=== PATIENT | female | born 1940 | race Caucasian/White ===

== ENCOUNTER 2018-02-17 13:05 | Inpatient (IN) | payer MEDICARE ==
[2018-02-17 13:36] LABS: #Eosinphils 0.2 thou/uL (0.0-0.7); #Lymphocytes 1.7 thou/uL (1.20-3.40); #Neutrophils 8.9 thou/uL (1.40-6.50); %Basophils 0.4 % (0.0-1.0); %Lymphocytes 14.4 % (21.0-51.0); %Neutrophils 75.2 % (42.0-75.0); Hemoglobin 6.6 g/dL (12.0-16.0); Mean Corpuscular HGB CONC 31.7 g/dL (32.0-36.0); Mean Corpuscular Hemoglobin 26.4 pg (27.0-31.0); Mean Corpuscular Volume 83.3 fL (78.0-98.0); Mean Platelet Volume 9.3 fL (7.4-10.4); Platelet Count 385 thou/uL (130-400); RBC Distribution Width 17.4 % (11.5-14.5); Red Blood Cell (RBC) Count 2.51 mill/uL (4.20-5.40); White Blood Cell (WBC) Count 11.9 thou/uL (4.8-10.8)
[2018-02-17 14:50] LABS: ALT (SGPT) 13 U/L (8-55); AST (SGOT) 20 U/L (5-34); Albumin 4.4 g/dL (3.4-4.8); Alkaline Phosphatase 31 U/L (40-150); Anion Gap 15 mmol/L (10-20); BUN (Urea Nitrogen) 32 mg/dL (9.8-20.1); Bilirubin, Total 0.8 mg/dL (0.2-1.2); CK (CPK) 141 U/L (29-168); Calc. Creatinine Clearance 0 mL/min (70-130); Calcium 9.5 mg/dL (7.8-10.44); Carbon Dioxide 26 mmol/L (23-31); Chloride 101 mmol/L (98-107); Estimated GFR-MDRD 45; Globulin 2.4 g/dL (2.4-3.5); Glucose 100 mg/dL (83-110); Potassium 4.6 mmol/L (3.5-5.1); Protein, Total 6.8 g/dL (6.0-8.3); Sodium 137 mmol/L (136-145)
[2018-02-17 14:52] LABS: CKMB 2.5 ng/mL (0-6.6); Troponin I Less than 0.010 ng/mL (< 0.028)
[2018-02-17 15:30] LABS: Bilirubin Negative (Negative); Blood, Urine Negative (Negative); Clarity CLEAR (Clear); Glucose, Urine (Dipstick) Negative (Negative); Leukocyte Small (Negative); Nitrite Negative (Negative); Protein, Urine (Dipstick) Negative (Neg-Trace); Specific Gravity, Urine 1.006 (1.002-1.036); Urobilinogen 0.2 mg/dL (0.2-1.0); pH, Urine 5.5 (5.0-9.0)
[2018-02-17 15:32] LABS: Bacteria/HPF None Seen HPF (None Seen); Hyaline Casts/LPF 0-3 HYALINE CAST LPF (0-3 Hyaline); Pathc Cast-AUWi Flag 0.14 (0-2.49); RBC/HPF 0-3 HPF (0-3)
[2018-02-17] MEDS ORDERED: Pantoprazole 80 MG, Admixture Fee 1 EACH in Sodium Chloride 0.9% 100 ML IVP SCH (15:45)
[2018-02-17] MEDS ORDERED: Pantoprazole 40 MG VIAL ONE (16:10)
--- NOTE | 2018-02-17 17:16 | HP ---
PRIMARY CARE PROVIDER: Dr. Diogenes Jose. [facility]. HISTORY OF PRESENT ILLNESS: The patient presents with progressive dizziness, lightheadedness for 2 w eeks. She has noted black tarry stools for 2 weeks. She was taking some Pepto-Bismol during this ti me; however, she stopped. Stools remain black and they have been positive for occult blood in the em ergency room. She has had no fainting. She has had some minimal nausea. Has not used excessive NSA IDs. She had a prior similar episode in 2012 where she was found to have hemoglobin less than 5. Wesley d a full workup including the camera study which was all negative. PAST MEDICAL HISTORY: Anemia in 2012, workup negative; hypertension; elevated cholesterol; hypothyro idism. She is on Xanax 0.25 one half in the morning and night. CURRENT MEDICATIONS: She takes metoprolol 25 mg once a day, levothyroxine 125 mcg a day, valsartan/h ydrochlorothiazide 80/12.5 once a day, cyclobenzaprine 10 mg q.8 hours p.r.n., Crestor 20 mg a day. ALLERGIES: CODEINE which causes nausea. PAST SURGICAL HISTORY: She had bone spur taken off of her right shoulder. FAMILY HISTORY: Father of coronary artery disease and had hypertension. He was 46 at that time . Mother of lung cancer. She was a heavy smoker. She has a sibling that is with mult iple myeloma. She is , nonsmoker. Drinks social alcohol 4-6 drinks a week. REVIEW OF SYSTEMS: GENERAL: No headache, fainting, fever or chills. EYES: No double vision, blurr ed vision, flashing lights. EAR, NOSE, AND THROAT: No ear pain or drainage. No nasal bleeding. No trouble swallowing. CARDIAC: No chest pain, orthopnea or paroxysmal nocturnal dyspnea. RESPIRATIO NS: She has occasional cough. She sometimes feels like fluids stick in her anterior chest. No hist ory of asthma, wheezing. GASTROINTESTINAL: Little nausea with present illness. The aforementioned melena, no abdominal pain, no vomiting. GENITOURINARY: No hematuria or dysuria. MUSCULOSKELETAL: She has had a little swell ing over the past couple of weeks. No pain in her muscles or joints. NEUROLOGIC: No strokes, seizu res or focal weakness. PSYCHIATRIC: She takes low dose Xanax for anxiety. SKIN: No bruising, blee ding or rash. HEME/LYMPH: No tender or swollen lymph nodes in axilla, inguinal, or cervical area. PHYSICAL EXAMINATION: GENERAL: She is an alert, pleasant, cooperative lady in no distress at the present time. VITAL SIGNS: Blood pressure 154/49, pulse 81, respirations 14, temperature 98.0. HEENT: Examination of her head, eyes, ears, nose, and throat reveal pupils equal, round, and reactiv e to light. Extraocular movements are intact. Sclerae are white. Tympanic membranes clear. Nose i s clear. Oral mucous membranes are wet. Dental hygiene is good. NECK: Jugular venous distention. No adenopathy or thyromegaly. CHEST: Clear to auscultation and percussion. HEART: Regular rate and rhythm. First and second heart sounds are clear. There are no murmurs or g allops. No palpable lift. ABDOMEN: Soft, bowel sounds are normal. There is no hepatosplenomegaly, no mass, no rebound, no bru its. EXTREMITIES: Reveals trace edema with no cyanosis or clubbing. PULSES: Carotid, radial, femoral, and dorsalis pedis pulses were brisk, symmetric. There was no bru it over her neck. SKIN: Warm and dry without bruises or rash. HEME/LYMPH: Reveal no tender or swollen lymph nodes in axilla, inguinal or cervical area. NEUROLOGICAL: Cranial nerves II-XII are intact. Deep tendon reflexes symmetric. Moves all extremit ies. PERTINENT LABORATORY DATA: Hemoglobin 6.6 with minimally microcytic indices, platelet count 395, whi te count 11.9, creatinine 1.17, BUN 32, sodium 137, potassium 4.6, CO2 26. Liver function tests norm al. ADMITTING DIAGNOSES: 1. Symptomatic anemia. 2. Dizziness. 3. Gastrointestinal bleeding with positive heme occult. 4. Hypertension. 5. Dyslipidemia. 6. Hypothyroidism, on therapy. PLAN: 1. Transfuse with 2 units of packed red blood cells. 2. H&H q.6 hours for 24 hours, transfuse if her hemoglobin less than 7 with 1 unit of packed cells. 3. GI consult. 4. Hold home medicines. 5. IV fluids. 6. Clear liquids. 7. SCDs for deep vein thrombosis prophylaxis. No Lovenox because of her active gastrointestinal ble gualberto.
[2018-02-17] MEDS ORDERED: Zolpidem Tartrate 5 MG TAB PO PRN (17:17)
[2018-02-17] MEDS ORDERED: Ondansetron HCl/PF 4 MG/2 ML Vial IVP PRN (17:17)
[2018-02-17] MEDS ORDERED: Acetaminophen 325 MG TAB PO PRN (17:17)
[2018-02-17 18:10] LABS: #Eosinphils 0.3 thou/uL (0.0-0.7); #Lymphocytes 1.4 thou/uL (1.20-3.40); #Monocytes 0.7 thou/uL (0.11-0.59); #Neutrophils 6.1 thou/uL (1.40-6.50); %Basophils 0.6 % (0.0-1.0); %Eosinophils 3.7 % (0.0-10.0); %Lymphocytes 16.7 % (21.0-51.0); %Monocytes 8.4 % (0.0-10.0); %Neutrophils 70.7 % (42.0-75.0); Hemoglobin 6.1 g/dL (12.0-16.0); Mean Corpuscular HGB CONC 32.5 g/dL (32.0-36.0); Mean Corpuscular Volume 83.3 fL (78.0-98.0); Platelet Count 324 thou/uL (130-400); RBC Distribution Width 17.5 % (11.5-14.5); Red Blood Cell (RBC) Count 2.26 mill/uL (4.20-5.40); White Blood Cell (WBC) Count 8.6 thou/uL (4.8-10.8)
[2018-02-17 18:12] VITALS: BMI 29.5
[2018-02-17 19:40] LABS: Iron 29 ug/dL (50-170); Iron Binding Capacity, Total 526 mcg/dL (265-497)
[2018-02-17] MEDS: Sodium Chloride 0.9% 1,000 ML IV SCH (20:04)
[2018-02-17] MEDS: Pantoprazole 40 MG VIAL IVP SCH (20:04)
[2018-02-18] MEDS: Refresh (Polyvinyl Alcohol 1.4%/Povidone 0.6%) Opth Drops EA EYE SCH ×3 (00:08→19:55)
[2018-02-18] MEDS: Sodium Chloride 0.9% 1,000 ML IV SCH ×4 (04:03→19:55)
[2018-02-18 04:17] LABS: #Eosinphils 0.4 thou/uL (0.0-0.7); #Lymphocytes 1.1 thou/uL (1.20-3.40); #Monocytes 0.7 thou/uL (0.11-0.59); #Neutrophils 7.7 thou/uL (1.40-6.50); %Basophils 0.4 % (0.0-1.0); %Eosinophils 3.9 % (0.0-10.0); %Lymphocytes 10.7 % (21.0-51.0); %Monocytes 6.9 % (0.0-10.0); %Neutrophils 78.2 % (42.0-75.0); Hemoglobin 7.8 g/dL (12.0-16.0); Mean Corpuscular HGB CONC 33.3 g/dL (32.0-36.0); Mean Corpuscular Hemoglobin 27.8 pg (27.0-31.0); Mean Corpuscular Volume 83.5 fL (78.0-98.0); Mean Platelet Volume 9.5 fL (7.4-10.4); Platelet Count 290 thou/uL (130-400); RBC Distribution Width 16.5 % (11.5-14.5); Red Blood Cell (RBC) Count 2.81 mill/uL (4.20-5.40); White Blood Cell (WBC) Count 9.9 thou/uL (4.8-10.8)
[2018-02-18 04:42] LABS: Anion Gap 11 mmol/L (10-20); BUN (Urea Nitrogen) 24 mg/dL (9.8-20.1); Calc. Creatinine Clearance 64 mL/min (70-130); Calcium 8.8 mg/dL (7.8-10.44); Carbon Dioxide 24 mmol/L (23-31); Chloride 106 mmol/L (98-107); Estimated GFR-MDRD 52; Glucose 82 mg/dL (83-110); Potassium 3.4 mmol/L (3.5-5.1); Sodium 138 mmol/L (136-145)
[2018-02-18] MEDS: Pantoprazole 40 MG VIAL IVP SCH ×2 (07:48→19:55)
--- NOTE | 2018-02-18 08:07 | PDOC.PN ---
- Subjective Encounter Start Date: 02/18/18 Encounter Start Time: 08:04 Subjective: no melena, abd pain - Objective Resuscitation Status: Resuscitation Status FULL:Full Resuscitation MAR Reviewed: Yes Vital Signs & Weight: Vital Signs (12 hours) Temp Pulse Pulse Resp BP BP Pulse Ox 02/18/18 07:29 98.6 F 78 16 134/65 94 L 02/18/18 02:10 98.0 F 82 16 152/63 H 95 02/17/18 23:30 98.0 F 77 16 151/66 H 96 02/17/18 23:10 98.3 F 77 16 150/61 H 95 02/17/18 21:02 98.4 F 85 16 143/56 H 96 Weight Weight 188 lb 3 oz I&O: 02/17/18 02/18/18 02/19/18 06:59 06:59 06:59 Intake Total 1700 Balance 1700 Result Diagrams: 02/18/18 03:30 02/18/18 03:30 Phys Exam - Physical Examination Neck: no JVD Respiratory: clear to auscultation bilateral Cardiovascular: RRR, no significant murmur Gastrointestinal: soft, positive bowel sounds Musculoskeletal: no edema Dx/Plan (1) GI bleeding Code(s): K92.2 - GASTROINTESTINAL HEMORRHAGE, UNSPECIFIED Status: Acute Qualifiers: GI bleed type/associated pathology: unspecified gastrointestinal hemorrhage type Qualified Code(s): K92.2 - Gastrointestinal hemorrhage, unspecified (2) BERNADINE (iron deficiency anemia) Code(s): D50.9 - IRON DEFICIENCY ANEMIA, UNSPECIFIED Status: Acute Qualifiers: Iron deficiency anemia type: chronic blood loss Qualified Code(s): D50.0 - Iron deficiency anemia secondary to blood loss (chronic) (3) HTN (hypertension) Code(s): I10 - ESSENTIAL (PRIMARY) HYPERTENSION Status: Acute Qualifiers: Hypertension type: essential hypertension Qualified Code(s): I10 - Essential (primary) hypertension (4) Dizziness Code(s): R42 - DIZZINESS AND GIDDINESS Status: Resolved - Plan serial H&H- transfuse for Hg < 7 -: cont iv PPI -: hold asa, etc -: await GI consult -: load with iv iron * .
[2018-02-18] MEDS ORDERED: Sodium Ferric Gluconate 250 MG, Admixture Fee 1 EACH in Sodium Chloride 0.9% 250 ML 250 ML IVPB SCH (08:15)
[2018-02-18] MEDS: ALPRAZolam 0.25 MG TAB PO SCH ×2 (08:47→19:55)
[2018-02-18] MEDS: Levothyroxine Sodium 125 MCG TAB PO SCH (08:47)
[2018-02-18] MEDS ORDERED: ALPRAZolam 0.25 MG TAB PO SCH (09:00)
[2018-02-18 09:02] LABS: #Eosinphils 0.3 thou/uL (0.0-0.7); #Lymphocytes 0.9 thou/uL (1.20-3.40); #Monocytes 0.8 thou/uL (0.11-0.59); #Neutrophils 9.7 thou/uL (1.40-6.50); %Basophils 0.4 % (0.0-1.0); %Eosinophils 2.5 % (0.0-10.0); %Monocytes 6.7 % (0.0-10.0); %Neutrophils 82.5 % (42.0-75.0); Hemoglobin 7.9 g/dL (12.0-16.0); Mean Corpuscular HGB CONC 33.2 g/dL (32.0-36.0); Mean Corpuscular Hemoglobin 27.5 pg (27.0-31.0); Mean Corpuscular Volume 82.8 fL (78.0-98.0); Mean Platelet Volume 8.8 fL (7.4-10.4); Platelet Count 262 thou/uL (130-400); RBC Distribution Width 16.7 % (11.5-14.5); Red Blood Cell (RBC) Count 2.89 mill/uL (4.20-5.40); White Blood Cell (WBC) Count 11.8 thou/uL (4.8-10.8)
[2018-02-18 12:22] LABS: #Eosinphils 0.3 thou/uL (0.0-0.7); #Monocytes 1.1 thou/uL (0.11-0.59); #Neutrophils 11.2 thou/uL (1.40-6.50); %Basophils 0.1 % (0.0-1.0); %Eosinophils 2.2 % (0.0-10.0); %Lymphocytes 7.6 % (21.0-51.0); %Monocytes 8.2 % (0.0-10.0); %Neutrophils 81.9 % (42.0-75.0); Mean Corpuscular HGB CONC 32.9 g/dL (32.0-36.0); Mean Corpuscular Hemoglobin 27.3 pg (27.0-31.0); Mean Corpuscular Volume 82.9 fL (78.0-98.0); Mean Platelet Volume 8.7 fL (7.4-10.4); Platelet Count 265 thou/uL (130-400); RBC Distribution Width 16.5 % (11.5-14.5); Red Blood Cell (RBC) Count 2.94 mill/uL (4.20-5.40); White Blood Cell (WBC) Count 13.7 thou/uL (4.8-10.8)
--- NOTE | 2018-02-18 14:12 | PQF ---
DATE: 02-18-18 ATTN: DR. ILYA HUGHES Please exercise your independent, professional judgment in responding to the clarification form. Clinical indicators are provided on the bottom of this form for your review Please check appropriate box(s): [ x ] Acute Renal Failure (ARF) / Acute Kidney Injury (ARNAV) [ ] Insignificant Lab Values [ ] Other diagnosis [ ] Unable to determine In addition, please specify: Present on Admission (POA): [ x ]x Yes [ ] No [ ] Unable to determine National Kidney Foundation Guidelines for CKD Staging Stage I Kidney damage with normal or increased GFR GFR > 90 Stage II Kidney damage with mildly decreased GFR GFR 60-89 Stage III Kidney damage with moderately decreased GFR GFR 30-59 Stage IV Kidney damage with severely decreased GFR GFR 16-29 Stage V Kidney failure GFR<15 ESRD End Stage Renal Disease On dialysis Acute Renal Failure/Acute Kidney Failure defined as: Increases in SCr by (>) 0.3 mg/dl within 48 hours OR- Increases in SCr by (>) 1.5 times baseline, known or presumed to have occurred within the prior 7 days OR- Urine volume < 0.5 ml/kg/hour for 6 hours (KDIGO supplement 2012 for RIFLE/DARLING criteria) For continuity of documentation, please document condition throughout progress notes and discharge summary. Thank You. CLINICAL INDICATORS - SIGNS / SYMPTOMS / LABS GFR: 02-17-18: 45 02-18-18 52 CREATININE: 02-17-18: 1.17 02-18-18: 1.03 BUN: 02-17-18: 32 02-18-18: 24 ER DX: SYMPTOMATIC ANEMIA, SUSPECTED GI BLEEDING RISK FACTORS: ER: HX OF HTN, HYPOTHYROIDISM, HYPERLIPIDEMIA ER: HOME MED OF METOPROLOL, VALSARTAN- HYDROCHLOROTHIAZIDE, CYCLOBENZAPRINE, CRESTOR, ASA, ALPRAZOLAM TREATMENTS: ER: IVF NS MAR: IVF NS (This form is maintained as a part of the permanent medical record) 2014 [employer]. All Rights Reserved [email or web address] [email or web address] Office: [phone] [facility]
[2018-02-18] MEDS ORDERED: GoLYTELY 4,000 ml Bottle PO SCH (16:00)
[2018-02-18] MEDS: Rosuvastatin 20 MG TAB PO SCH (19:55)
--- NOTE | 2018-02-19 01:14 | CON ---
DATE OF CONSULTATION: 02/18/2018 REASON FOR CONSULTATION: Iron deficiency anemia. CONSULTING PHYSICIAN: Leroy Ruano M.D. HISTORY OF PRESENT ILLNESS: The patient is a 77-year-old female with past medical history of hyperli pidemia, hypertension, and anemia presenting with complaints of generalized dizziness, weakness, and presyncopal events along with darker colored stools concerning for GI bleeding. She states that she was in her usual state of health until approximately 2 weeks ago when she started experiencing increa sed episodes of dizziness, generalized weakness, presyncopal events that were not associated with los s of consciousness as well as intermittent appearance of black semi-solid stools that were difficult to clean; however, she also endorses the use of Pepto-Bismol shortly after the appearance of these da rker colored stools and she discontinued this medication approximately 3 days ago with continued of t hese darker/black colored stools into this admission. This was also associated with increased nausea with no actual emesis. She further denies any hematemesis, hematochezia, weight loss, dysphagia, od ynophagia or abdominal pain. Of note, she had a very similar episode of this in 2011 with almost the exact same presenting symptom s for which she underwent EGD, colonoscopy, and capsule endoscopy with no discernible origin of her G I bleeding noted at that time. After this evaluation, she was placed on iron supplementation and had no further episodes until now. REVIEW OF SYSTEMS: A 10-category review of systems was obtained with all responses negative except f or the pertinent positives as listed in the HPI. PAST SURGICAL HISTORY: Bone spur removed from the right shoulder. FAMILY HISTORY: Denies any GI malignancies. SOCIAL HISTORY: Denies any tobacco or illicit drug use. Drinks approximately 4-6 glasses of wine pe r week. OUTPATIENT MEDICATIONS: Reviewed. ALLERGIES: CODEINE. PHYSICAL EXAMINATION: VITAL SIGNS: Temperature 98.5, pulse 84, blood pressure 165/64, respiratory rate 16, satting 96% on room air. GENERAL: Patient was sitting in chair at bedside in no acute distress, alert and oriented x4. NECK: Supple. No JVD noted. No supraclavicular lymphadenopathy. CARDIOVASCULAR: Regular rate and rhythm but with a 4/6 systolic ejection murmur. No gallops or rubs . RESPIRATORY: Clear to auscultation bilaterally with no discernible wheezes or rales. ABDOMEN: Normoactive bowel sounds, soft, nontender, nondistended. EXTREMITIES: Trace bilateral lower extremity edema extending to the mid sauceda, but more predominant o n the right lower extremity. MUSCULOSKELETAL: No cyanosis or clubbing noted. LABORATORY DATA: CBC with a white blood cell count of 13.7, hemoglobin 8, hematocrit 24.4, platelets 265. Chemistry with a sodium of 138, potassium 3.4, chloride 106, CO2 of 24, BUN 24, creatinine 1.0 3, glucose 82, AST 20, ALT 13, alkaline phosphatase 31, total bilirubin 0.8, iron 29, TIBC 526. IMAGING DATA: EGD performed on 08/15/2011 showed slight erosive esophagitis as well as a red spot at the proximal greater curvature of the stomach that was intervened upon with bipolar cautery. A colo noscopy was performed on 06/15/2011 with diverticulosis, but was otherwise normal other than the find ing. Capsule endoscopy performed on 06/30/2011 also showed some small red spots scattered throughout the small intestine, but no evidence of active/recent bleeding. ASSESSMENT AND PLAN: The patient is a 77-year-old female with past medical history of hyperlipidemia , hypertension, and anemia presenting with increased dizziness, weakness, and melenic type stools con cerning for GI bleeding. GI bleeding: The patient is presenting with a recent history of increased dizziness, weakness, and p resyncopal events associated with the appearance of black semi-solid stools approximately 2 weeks ago . She did initially take Pepto-Bismol, which could potentially create a darker colored stool further confounding the issue, but the appearance of these black stools were present prior to administration and present after she discontinued the medication. Currently, presenting with a low iron and an jonn vated TIBC consistent with iron deficiency anemia as well as an elevated BUN to creatinine ratio, elvira is further concerning for an upper gastrointestinal bleed; however, given her prior workup for kaitlynn y similar symptoms in the past, there was no discernible origin seen on either upper or lower endosco py. At this point full evaluation GI evaluation will be indicated for possible GI bleeding. RECOMMENDATIONS: 1. We would continue to trend H&H and transfuse as necessary to maintain an H&H of 7/21. 2. Continue to monitor clinically for signs of active GI bleeding. 3. We will place patient on a clear liquid diet with plans to make her n.p.o. at midnight in prepara tion for both EGD and colonoscopy tomorrow morning. 4. We would continue patient on PPI b.i.d. given the possibility of upper gastrointestinal bleeding. 5. Further recommendations to follow endoscopic evaluation. We will continue to follow. Please call with any questions.
[2018-02-19] MEDS: Pantoprazole 40 MG VIAL IVP SCH ×2 (07:45→20:21)
[2018-02-19] MEDS: Sodium Chloride 0.9% 1,000 ML IV SCH ×2 (09:29→17:14)
[2018-02-19] MEDS: Levothyroxine Sodium 125 MCG TAB PO SCH (09:49)
[2018-02-19] MEDS: Refresh (Polyvinyl Alcohol 1.4%/Povidone 0.6%) Opth Drops EA EYE SCH ×2 (09:49→20:21)
[2018-02-19] MEDS: ALPRAZolam 0.25 MG TAB PO SCH ×2 (09:50→20:21)
[2018-02-19 12:29] LABS: #Eosinphils 0.4 thou/uL (0.0-0.7); #Lymphocytes 1.1 thou/uL (1.20-3.40); #Monocytes 0.5 thou/uL (0.11-0.59); #Neutrophils 5.6 thou/uL (1.40-6.50); %Basophils 0.2 % (0.0-1.0); %Eosinophils 5.6 % (0.0-10.0); %Lymphocytes 14.8 % (21.0-51.0); %Monocytes 6.3 % (0.0-10.0); %Neutrophils 73.2 % (42.0-75.0); Hemoglobin 7.4 g/dL (12.0-16.0); Mean Corpuscular HGB CONC 32.7 g/dL (32.0-36.0); Mean Corpuscular Hemoglobin 27.6 pg (27.0-31.0); Mean Corpuscular Volume 84.6 fL (78.0-98.0); Mean Platelet Volume 8.4 fL (7.4-10.4); Platelet Count 288 thou/uL (130-400); RBC Distribution Width 16.9 % (11.5-14.5); Red Blood Cell (RBC) Count 2.69 mill/uL (4.20-5.40); White Blood Cell (WBC) Count 7.7 thou/uL (4.8-10.8)
[2018-02-19] MEDS ORDERED: Fentanyl 100 MCG/2 ML VIAL ONE (13:35)
[2018-02-19] MEDS ORDERED: Promethazine HCl 25 MG/ML VIAL SLOW IVP PRN (14:37)
[2018-02-19] MEDS ORDERED: Meperidine HCl/PF 25 MG/ML VIAL SLOW IVP PRN (14:37)
[2018-02-19] MEDS ORDERED: Promethazine HCl 25 MG/ML VIAL IM PRN (14:37)
[2018-02-19] MEDS ORDERED: Ondansetron HCl/PF 4 MG/2 ML Vial IVP PRN (14:37)
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
--- NOTE | 2018-02-19 18:23 | OP ---
DATE OF PROCEDURE: 02/19/2018 PROCEDURES: Esophagogastroduodenoscopy with biopsy, colonoscopy with biopsy and control of hemorrhag e. INDICATION FOR PROCEDURES: Iron deficiency anemia, possible melena. DESCRIPTION OF PROCEDURE: After the risks and benefits of the procedure were explained to the patien t including risk of bleeding, infection, perforation, reactions to anesthesia, aspiration and/or pain , informed consent was obtained. The patient was then taken to the endoscopy suite where deep sedati on was administered via propofol and anesthesia support. Once adequate sedation was achieved, the st andard gastroscope was introduced into the mouth with intubation of the esophagus, stomach and proxim al small intestine with the findings listed below. The patient tolerated the procedure well with no immediate perioperative complications. After completion of this phase of the procedures, all equipme nt was then removed and the bed was rotated to 180 degrees in preparation for the colonoscopy. After an external examination was performed, the standard colonoscope was introduced into the rectum and a dvanced to the terminal ileum with moderate difficulty due to strict angulation within the sigmoid co taco and looping of the scope in the same region that required the application of manual abdominal pre ssure to facilitate passage of the scope. The quality of the prep was adequate with areas of retaine d liquid stool somewhat limiting visualization, but the prep was not sufficient enough to evaluate fo r fine mucosal lesions less than 5 mm in size. The patient tolerated this procedure well with no imm ediate perioperative complications and was transferred to PACU in satisfactory condition. EGD FINDINGS: Esophagus.: Normal appearing mucosa was seen in the proximal, mid and distal esophagus. There was n o evidence of erosions, ulcerations, mass lesions or active/recent bleeding. Stomach: Normal appearing mucosa was seen in the gastric cardia, fundus, incisura and antrum. Howev er, in the distal gastric fundus and within the body, there were multiple small clean based ulceratio ns measuring approximately 2-4 mm in size. They did not exhibit any stigmata of active or recent ble eding. Multiple biopsies were taken of these ulcerations and placed in a specimen jar for evaluation . Otherwise, no additional abnormalities were seen within the stomach with no evidence of mass lesio ns or bleeding. Duodenum: Normal appearing mucosa was seen in both the duodenal bulb and second portion of the duode num. There was no evidence of erosions, ulcerations, mass lesions or active/recent bleeding. IMPRESSION: 1. Multiple small clean based ulcerations seen within the stomach without any stigmata of active or recent bleeding, status post biopsies for evaluation. 2. Otherwise, normal upper endoscopy. COLONOSCOPY FINDINGS: Digital rectal exam: Normal external examination. COLON FINDINGS: Normal appearing mucosa was seen in the terminal ileum as well as at the ileocecal v alve; however, a 4 mm clean based nonbleeding ulcer was seen in the cecum without any stigmata of act surinder or recent bleeding. Multiple biopsies were taken for evaluation and placed in a specimen jar. N ormal appearing mucosa was then seen in the ascending colon; however, an additional clean based ulcer ation was seen in the mid transverse colon at approximately 60 cm. This ulceration measured 6 mm in size and did have a red spot within the center of the ulceration concerning for possible bleeding garret rce. After taking multiple biopsies from this lesion as well and placed in a specimen jar. Bipolar cautery was applied to the red spot as well as the areas where biopsies were taken with good hemostas is achieved. Normal appearing mucosa was then seen in the distal transverse colon, descending, sigmo id colon, and rectum. Hypertrophied anal papillae were seen on rectal retroflexion. IMPRESSION: 1. A 4 mm clean based, nonbleeding cecal ulceration status post biopsies. 2. A 6 mm clean based, nonbleeding ulcerations seen in the transverse colon, but exhibiting high ris k stigmata of active/recent bleeding, status post bipolar cautery with good hemostasis achieved. 3. Hypertrophied anal papillae. RECOMMENDATIONS: 1. We would continue to trend H&H and transfuse as necessary to maintain an H&H of 7/21. 2. We would continue to monitor clinically for signs of active gastrointestinal bleeding. 3. We would place patient on iron supplementation for treatment of her iron deficiency anemia, most likely caused from the multiple GI ulcerations. 4. We will await biopsy results to guide further management of her GI ulcerations. 5. We would place the patient on a clear liquid diet for now and advance as tolerated if no addition al evidence of GI bleeding is seen within the next 24-48 hours. We will continue to follow. Please call with any questions.
[2018-02-19] MEDS: Rosuvastatin 20 MG TAB PO SCH (20:21)
[2018-02-20] MEDS: Sodium Chloride 0.9% 1,000 ML IV SCH ×4 (01:01→20:17)
[2018-02-20] MEDS: ALPRAZolam 0.25 MG TAB PO SCH ×2 (07:57→20:16)
[2018-02-20] MEDS: Refresh (Polyvinyl Alcohol 1.4%/Povidone 0.6%) Opth Drops EA EYE SCH ×2 (07:57→20:19)
[2018-02-20] MEDS: Levothyroxine Sodium 125 MCG TAB PO SCH (07:57)
[2018-02-20] MEDS: Pantoprazole 40 MG VIAL IVP SCH ×2 (07:58→20:16)
[2018-02-20 10:24] LABS: #Eosinphils 0.3 thou/uL (0.0-0.7); #Monocytes 0.7 thou/uL (0.11-0.59); #Neutrophils 7.1 thou/uL (1.40-6.50); %Basophils 0.1 % (0.0-1.0); %Eosinophils 3.3 % (0.0-10.0); %Lymphocytes 10.8 % (21.0-51.0); %Monocytes 7.2 % (0.0-10.0); %Neutrophils 78.7 % (42.0-75.0); Hemoglobin 7.1 g/dL (12.0-16.0); Mean Corpuscular HGB CONC 32.3 g/dL (32.0-36.0); Mean Corpuscular Hemoglobin 27.6 pg (27.0-31.0); Mean Corpuscular Volume 85.4 fL (78.0-98.0); Mean Platelet Volume 8.8 fL (7.4-10.4); Platelet Count 269 thou/uL (130-400); Red Blood Cell (RBC) Count 2.58 mill/uL (4.20-5.40); White Blood Cell (WBC) Count 9.1 thou/uL (4.8-10.8)
[2018-02-20 10:49] LABS: ALT (SGPT) 11 U/L (8-55); AST (SGOT) 20 U/L (5-34); Albumin 3.4 g/dL (3.4-4.8); Alkaline Phosphatase 27 U/L (40-150); Anion Gap 9 mmol/L (10-20); BUN (Urea Nitrogen) 9 mg/dL (9.8-20.1); Bilirubin, Total 0.7 mg/dL (0.2-1.2); Calc. Creatinine Clearance 65 mL/min (70-130); Calcium 8.1 mg/dL (7.8-10.44); Carbon Dioxide 25 mmol/L (23-31); Chloride 109 mmol/L (98-107); Estimated GFR-MDRD 53; Globulin 2.2 g/dL (2.4-3.5); Glucose 116 mg/dL (83-110); Potassium 3.3 mmol/L (3.5-5.1); Protein, Total 5.6 g/dL (6.0-8.3); Sodium 140 mmol/L (136-145)
--- NOTE | 2018-02-20 14:01 | PDOC.PN ---
- Subjective Encounter Start Date: 02/20/18 Encounter Start Time: 11:00 Patient is seen today, alert and oriented. She is on clear liquid diet, her Hb is 7.1, No active bleeding Noted - Objective Resuscitation Status: Resuscitation Status FULL:Full Resuscitation MAR Reviewed: Yes Vital Signs & Weight: Vital Signs (12 hours) Temp Pulse Resp BP Pulse Ox 02/20/18 08:31 97.7 F 93 18 105/56 L 93 L 02/20/18 08:00 97.7 F 93 18 02/20/18 04:00 98.1 F 79 16 113/65 95 Weight Weight 188 lb 3 oz I&O: 02/19/18 02/20/18 02/21/18 06:59 06:59 06:59 Intake Total 7350 3820 Balance 7350 3820 Result Diagrams: 02/20/18 10:16 02/20/18 10:16 Radiology Reviewed by me: Yes Phys Exam - Physical Examination HEENT: PERRLA, moist MMs Neck: no nodes, no JVD Respiratory: no wheezing, no rales Cardiovascular: RRR, no significant murmur Gastrointestinal: soft, non-tender Musculoskeletal: no edema, pulses present Neurological: non-focal, normal sensation Dx/Plan (1) GI bleeding Code(s): K92.2 - GASTROINTESTINAL HEMORRHAGE, UNSPECIFIED Status: Acute Qualifiers: GI bleed type/associated pathology: unspecified gastrointestinal hemorrhage type Qualified Code(s): K92.2 - Gastrointestinal hemorrhage, unspecified Comment: EGD showed gastric ulcers. Drop in HB, no bleeding noted, Will need to monitor one more night , will advance th diet slowly. bland diet. (2) HTN (hypertension) Code(s): I10 - ESSENTIAL (PRIMARY) HYPERTENSION Status: Acute Qualifiers: Hypertension type: essential hypertension Qualified Code(s): I10 - Essential (primary) hypertension Comment: Hold PO Meds, Will treat with Iv hydralazine PRN systolic >160 (3) BERNADINE (iron deficiency anemia) Code(s): D50.9 - IRON DEFICIENCY ANEMIA, UNSPECIFIED Status: Acute Qualifiers: Iron deficiency anemia type: chronic blood loss Qualified Code(s): D50.0 - Iron deficiency anemia secondary to blood loss (chronic) Comment: Will cotninue with PO iron. (4) Dizziness Code(s): R42 - DIZZINESS AND GIDDINESS Status: Resolved Comment: Improved today, continue with IV fluids. - Plan cont current plan of care, plan discussed w/ family, PT/OT, social work faculty member, respiratory therapy, incentive spirometry, DVT proph w/SCDs * . Review of Systems - Review of Systems Constitutional: negative: fever, chills, sweats, weakness, malaise, other Eyes: negative: Pain, Vision Change, Conjunctivae Inflammation, Eyelid Inflammation, Redness, Other ENT: negative: Ear Pain, Ear Discharge, Nose Pain, Nose Discharge, Nose Congestion, Mouth Pain, Mouth Swelling, Throat Pain, Throat Swelling, Other Respiratory: negative: Cough, Dry, Shortness of Breath, Hemoptysis, SOB with Excertion, Pleuritic Pain, Sputum, Wheezing Cardiovascular: negative: chest pain, palpitations, orthopnea, paroxysmal nocturnal dyspnea, edema, light headedness, other Gastrointestinal: negative: Nausea, Vomiting, Abdominal Pain, Diarrhea, Constipation, Melena, Hematochezia, Other Musculoskeletal: negative: Neck Pain, Shoulder Pain, Arm Pain, Back Pain, Hand Pain, Leg Pain, Foot Pain, Other - Medications/Allergies Allergies/Adverse Reactions: Allergies Allergy/AdvReac Type Severity Reaction Status Date / Time codeine Allergy Verified 02/17/18 15:35 Medications: Current Medications Acetaminophen (Tylenol) 650 mg PO Q4H PRN PRN Reason: Headache/Fever or Pain Alprazolam (Xanax) 0.125 mg PO BID [facility] Last Admin: 02/20/18 07:57 Dose: 0.125 mg Sodium Chloride (Normal Saline 0.9%) 1,000 mls @ 125 mls/hr IV .Q8H [facility] Last Admin: 02/20/18 07:59 Dose: 1,000 mls Levothyroxine Sodium (Synthroid) 125 mcg PO DAILY [facility] Last Admin: 02/20/18 07:57 Dose: 125 mcg Metoprolol Succinate (Toprol Xl) 25 mg PO DAILY [facility] Last Admin: 02/20/18 07:57 Dose: 25 mg Ondansetron HCl (Zofran) 4 mg IVP Q6H PRN PRN Reason: Nausea/Vomiting Pantoprazole Sodium (Protonix) 40 mg IVP Q12HR [facility] Last Admin: 02/20/18 07:58 Dose: 40 mg Polyvinyl Alcohol/Povidone (Refresh Classic Eye Drops) 0 each EA [facility] Last Admin: 02/20/18 07:57 Dose: 1 each Rosuvastatin Calcium (Crestor) 20 mg PO HS [facility] Last Admin: 02/19/18 20:21 Dose: 20 mg Sodium Chloride (Flush - Normal Saline) 10 ml IVF Q12HR [facility] Last Admin: 02/20/18 07:58 Dose: 10 ml Sodium Chloride (Flush - Normal Saline) 10 ml IVF PRN PRN PRN Reason: Saline Flush Zolpidem Tartrate (Ambien) 5 mg PO HSPRN PRN PRN Reason: Insomnia Last Admin: 02/17/18 23:34 Dose: 5 mg
[2018-02-20] MEDS: Rosuvastatin 20 MG TAB PO SCH (20:16)
--- NOTE | 2018-02-20 21:46 | EKG ---
Test Reason : Blood Pressure : / mmHG Vent. Rate : 077 BPM Atrial Rate : 077 BPM P-R Int : 182 ms QRS Dur : 098 ms QT Int : 422 ms P-R-T Axes : 032 -06 005 degrees QTc Int : 477 ms Normal sinus rhythm Incomplete right bundle branch block Inferior infarct , age undetermined Abnormal ECG Confirmed by BARBARA Bruno, ROBINA ([id number]), health editor WENDY ALY ([id number]) on 02/20/2018 9:46:30 PM Referred By: Confirmed By:ROBINA JIMENEZ M.D.
--- NOTE | 2018-02-21 00:12 | PRG ---
DATE OF SERVICE: 02/20/2018 REASON FOR CONSULTATION: Iron-deficiency anemia. SUBJECTIVE: The patient did well today with no acute events or problems overnight. Currently, denie s any nausea, vomiting, fevers, chills, shortness of breath, abdominal pain, GI bleeding, dysphagia, or odynophagia. OBJECTIVE: VITAL SIGNS: Temperature 99.3, pulse 95, blood pressure 121/71, respiratory rate 16, satting 96% on room air. GENERAL: Patient is sitting at bedside in no acute distress. Alert and oriented x4. CARDIOVASCULAR: Regular rate and rhythm with no discernible murmurs, gallops, or rubs. LUNGS: Clear to auscultation bilaterally. ABDOMEN: Normoactive bowel sounds, soft, nontender, nondistended. EXTREMITIES: No cyanosis, clubbing, or edema. LABORATORY DATA: CBC with a white blood cell count of 9.1, hemoglobin 7.1, hematocrit 22, platelets 269. Chemistry with a sodium of 140, potassium 3.3, chloride 109, CO2 of 25, BUN 9, creatinine 1.01, glucose 116. AST 20, ALT 11, alkaline phosphatase 27, total bilirubin 0.7. IMAGING DATA: Patient underwent EGD and colonoscopy on 02/19/2018 with the findings of multiple smal l clean based ulcerations seen within the stomach without any stigmata of active or recent bleeding a lso seen within colon were two ulcerations measuring 4 and 6 mm in size within the cecum and transver se colon respectively without high-risk stigmata, although the transverse colon ulceration did have a dark spot in the center concerning for recent GI bleeding and was intervened upon with bipolar caute ry with good hemostasis. ASSESSMENT AND PLAN: The patient is a 77-year-old female with past medical history of hyperlipidemia , hypertension, and anemia presenting with symptomatic anemia and melenic type stools concerning for GI bleeding. GI bleeding: The patient initially presented with a history of increased dizziness, weakness, and pr esyncopal events with the appearance of black semi-solid stools concerning for GI bleeding. She subs equently underwent both EGD and colonoscopy on 02/19/2018 with the finding of multiple gastric ulcera tions as well as two colonic ulcerations which could potentially contribute to current blood loss/sym ptomatic anemia. Of the ulcers, the largest one was located within the transverse colon with dark sp ot in the middle that was intervened upon with bipolar cautery. At the current time, she denies any further episodes of melenic type stools and has had a significant reduction in her BUN to creatinine ratio with a stable H&H, making the likelihood of further GI bleeding less likely. RECOMMENDATIONS: 1. We would continue to trend H&H and transfuse as necessary to maintain H&H of 7/21. 2. Continue to monitor clinically for signs of active gastrointestinal bleeding. 3. We would continue pantoprazole 40 mg b.i.d. given the presence of gastric ulcerations. 4. Patient will need a repeat upper endoscopy in approximately 8-12 weeks for reevaluation of the ga stric ulcerations and confirm healing. Repeat colonoscopy could be considered at that time. 5. We would strongly avoid use of any NSAIDs, as their used could contribute to the current clinical picture. We will continue to follow. Please call with any questions.
[2018-02-21] MEDS: Levothyroxine Sodium 125 MCG TAB PO SCH (07:17)
[2018-02-21] MEDS: Pantoprazole 40 MG VIAL IVP SCH (07:18)
[2018-02-21] MEDS: ALPRAZolam 0.25 MG TAB PO SCH (07:18)
[2018-02-21] MEDS: Refresh (Polyvinyl Alcohol 1.4%/Povidone 0.6%) Opth Drops EA EYE SCH (07:19)
[2018-02-21] MEDS: Sodium Chloride 0.9% 1,000 ML IV SCH ×2 (07:25→15:24)
[2018-02-21 07:26] VITALS: BP 127/73
[2018-02-21] MEDS ORDERED: Cyclobenzaprine 10 MG TAB PO PRN (08:24)
[2018-02-21 08:31] LABS: Hemoglobin 7.4 g/dL (12.0-16.0)
[2018-02-21 08:39] LABS: #Eosinphils 0.2 thou/uL (0.0-0.7); #Lymphocytes 0.7 thou/uL (1.20-3.40); #Monocytes 0.7 thou/uL (0.11-0.59); #Neutrophils 7.1 thou/uL (1.40-6.50); %Basophils 0.4 % (0.0-1.0); %Eosinophils 2.7 % (0.0-10.0); %Lymphocytes 7.9 % (21.0-51.0); %Monocytes 7.7 % (0.0-10.0); %Neutrophils 81.3 % (42.0-75.0); Hemoglobin 7.5 g/dL (12.0-16.0); Mean Corpuscular HGB CONC 32.4 g/dL (32.0-36.0); Mean Corpuscular Hemoglobin 27.8 pg (27.0-31.0); Mean Corpuscular Volume 85.6 fL (78.0-98.0); Mean Platelet Volume 9.3 fL (7.4-10.4); Platelet Count 250 thou/uL (130-400); RBC Distribution Width 17.8 % (11.5-14.5); Red Blood Cell (RBC) Count 2.69 mill/uL (4.20-5.40); White Blood Cell (WBC) Count 8.7 thou/uL (4.8-10.8)
[2018-02-21 08:42] VITALS: TEMP 98.1
[2018-02-21 08:51] LABS: ALT (SGPT) 13 U/L (8-55); AST (SGOT) 23 U/L (5-34); Albumin 3.5 g/dL (3.4-4.8); Alkaline Phosphatase 29 U/L (40-150); Anion Gap 11 mmol/L (10-20); BUN (Urea Nitrogen) 7 mg/dL (9.8-20.1); Bilirubin, Total 0.7 mg/dL (0.2-1.2); Calc. Creatinine Clearance 64 mL/min (70-130); Carbon Dioxide 22 mmol/L (23-31); Chloride 109 mmol/L (98-107); Estimated GFR-MDRD 53; Globulin 2.4 g/dL (2.4-3.5); Glucose 106 mg/dL (83-110); Protein, Total 5.9 g/dL (6.0-8.3); Sodium 139 mmol/L (136-145)
[2018-02-21] MEDS ORDERED: Potassium Chloride 20 MEQ TAB PO SCH (10:30)
--- NOTE | 2018-02-21 11:42 | DIS ---
DATE OF ADMISSION: 02/17/2018 DATE OF DISCHARGE: 02/21/2018 PRIMARY CARE PHYSICIAN: Dr. Diogenes Jose. DISCHARGE DISPOSITION: Home. PRIMARY DISCHARGE DIAGNOSES: 1. Acute upper gastrointestinal bleed due to gastric ulcer. 2. Anemia due to acute blood loss, status post 2-unit transfusion. 3. Colon and cecal ulcer. 4. Symptomatic anemia. 5. Upper respiratory infection. SECONDARY DISCHARGE DIAGNOSES: Hypothyroidism, hypertension, dyslipidemia, anxiety and depression. PRIMARY PROCEDURES/OPERATIONS: Upper endoscopy was performed by Dr. Katz and found with multiple sm all clean-based ulceration in the stomach. Colonoscopy showed 4 mm cecal ulcer and transverse colon 6 mm ulcer without any active bleeding. RADIOLOGICAL INVESTIGATION: Chest x-ray. SIGNIFICANT LABORATORY DATA: WBC 8.7, hemoglobin 7.5, platelets 250. Sodium 139, potassium 3.0, BUN 7, creatinine 1.02, calcium 8.0. LFT normal. Cardiac enzymes negative. Urinalysis unremarkable. Stool for guaiac positive. DISCHARGE MEDICATIONS: Z-Robert as directed for 1 pack, Ventolin inhaler 2 puffs q.6 hours p.r.n. for s hortness of breath, Protonix 40 mg p.o. b.i.d., valsartan with hydrochlorothiazide one tablet p.o. da karley, Crestor 20 mg p.o. daily, Toprol-XL 25 mg p.o. daily, Synthroid 125 mcg p.o. daily, Flexeril 10 mg t.i.d. p.r.n., aspirin 81 mg p.o. at bedtime, Xanax 0.5 mg p.o. b.i.d. p.r.n. CONTRAINDICATIONS: None. CODE STATUS: FULL CODE. SECONDARY DISCHARGE DIAGNOSES: Hypertension, hypothyroidism, dyslipidemia, anxiety, and depression. INPATIENT CONSULTANTS: Dr. Horacio Katz was consulted while in hospital. TEST RESULTS PENDING ON DISCHARGE: None. ALLERGIES: CODEINE. DISCHARGE PLAN: Post hospital, the patient will follow up with primary care physician in 1 week. Th e patient will follow up with Dr. Horacio Katz as instructed. HOSPITAL COURSE: This is a 77-year-old female with the above-mentioned medical problem, who was admi tted by Dr. Ruano on 02/17/2018. Please see his H and P for further detail. The patient was having generalized weakness, fatigue, dyspnea, and dizziness. She was experiencing symptomatic anemia. On admission, her hemoglobin was 6.6. She was given total 2 units of blood transfusion. On discharge, her hemoglobin was 7.5. GI was consulted and they did upper and lower endoscopy. Patient was found with a small ulcer in the stomach as well as cecal and transverse colon ulcer. She was treated with a proton pump inhibitor while in hospital. She was given IV fluid and dehydration was corrected. He r abnormal electrolytes were corrected while in hospital. Upon discharge, we prescribed Protonix 40 mg p.o. b.i.d. The patient was experiencing upper respiratory infection and that is why we did chest x-ray as well as we prescribed her Z-Robert and Ventolin inhaler to use as needed basis. The patient is currently feeling much better. Her vitals were stable. The patient is seen and exami sabrina at bedside today. All review of system reviewed with her and negative. PHYSICAL EXAMINATION: VITAL SIGNS: Currently, temperature 98.1, pulse 92, respiratory rate 18, saturation 92% on room air, weight 188 pounds, blood pressure 127/73. GENERAL: The patient is currently alert, awake, in no obvious acute distress. HEAD: Normocephalic, atraumatic. EYES: Pupils round and reactive to light. Extraocular muscles intact. ENT: Oropharynx within normal limits. Moist mucous membranes, no oral lesion, no pharyngeal erythem a, no exudate. NECK: Supple, no JVD, no thyromegaly, no carotid bruit. LUNGS: Clear to auscultation without any rhonchi or rales. CARDIAC: S1 and S2, regular without any murmur. ABDOMEN: Soft and benign. EXTREMITIES: No edema. NEUROLOGICAL: Nonfocal examination. Overall, patient is medically stable for discharge today with the above-mentioned medication.
--- NOTE | 2018-02-21 12:55 | RAD ---
UPRIGHT PORTABLE CHEST 1 VIEW: HISTORY: A 77-year-old female with a cough. COMPARISON: 06/20/11. FINDINGS: Mild bilateral vascular congestion. There are some parenchymal changes in the left lower lobe retroc ardiac region with some blunting of the left costophrenic angle concerning for minimal left lower lob e pneumonia. The right lung demonstrates no new confluent process. IMPRESSION: Minimal pleural and parenchymal opacity changes in the left base concerning for left lower lobe pneum onia. Bilateral vascular congestion. Atherosclerosis of the aorta with ectasia. POS: [facility]
== END 2018-02-21 15:44 | disposition home or self-care (01) | DRG 378 ==
LOC: ERS 13:05 → T4-A 17:47
PROVIDERS: ADMIT Internal Medicine; ATTEND Internal Medicine
PROC: 30233N1 Transfusion of Nonautologous Red Blood Cells into Peripheral Vein, Percutaneous Approach (ICD-10-PCS; 2018-02-17)
PROC: 0DB68ZX Excision of Stomach, Via Natural or Artificial Opening Endoscopic, Diagnostic (ICD-10-PCS; principal; 2018-02-19)
PROC: 0DBH8ZX Excision of Cecum, Via Natural or Artificial Opening Endoscopic, Diagnostic (ICD-10-PCS; 2018-02-19)
PROC: 0DBL8ZX Excision of Transverse Colon, Via Natural or Artificial Opening Endoscopic, Diagnostic (ICD-10-PCS; 2018-02-19)
PROC: 0W3P8ZZ Control Bleeding in Gastrointestinal Tract, Via Natural or Artificial Opening Endoscopic (ICD-10-PCS; 2018-02-19)
DX: K92.2 Gastrointestinal hemorrhage, unspecified (principal); K63.3 Ulcer of intestine; N17.9 Acute kidney failure, unspecified; I10 Essential (primary) hypertension; E03.9 Hypothyroidism, unspecified; E78.5 Hyperlipidemia, unspecified; R42 Dizziness and giddiness; D50.0 Iron deficiency anemia secondary to blood loss (chronic); F41.9 Anxiety disorder, unspecified; F32.9 Major depressive disorder, single episode, unspecified; J06.9 Acute upper respiratory infection, unspecified; E86.0 Dehydration; K25.9 Gastric ulcer, unspecified as acute or chronic, without hemorrhage or perforation; Z88.5 Allergy status to narcotic agent; Z82.49 Family history of ischemic heart disease and other diseases of the circulatory system; Z80.1 Family history of malignant neoplasm of trachea, bronchus and lung
CPT/HCPCS: 36415; 36430; 71045; 80048; 80053; 81003; 81015; 82274; 82550; 82553; 83540; 83550; 84484; 85014; 85018; 85025; 86850; 86900; 86901; 88305; 88312; 93005; 94640; 96361; 96365; 96376; A4216; C9113; G8978-GP-CH; G8979-GP-CH; G8980-GP-CH; J2916; J3010; J7050; J7620; P9016